=== PATIENT | female | born 1965 | race Caucasian/White ===

== ENCOUNTER → 2024-10-10 | Outpatient (CLI) | payer BC, SELFPAY ==
--- NOTE | 2024-10-10 12:10 | XR_ITS ---
EXAMINATION: Cervical spine, 5 views Technique: Cervical spine AP, AP odontoid, lateral, bilateral obliques, 5 views Exam date and time: October 10, 2024 1226 hours INDICATIONS: Neck pain decreased range of motion 10 years. FINDINGS: Moderate osteopenia Chronic wedging C5 Advanced degenerative disc disease C5-C6 Moderate degenerative disc disease C6-C7 Moderate to advanced bilateral neural foraminal stenosis at the C5-C6 C6-C7 levels Intact odontoid No acute cervical fracture IMPRESSION: Advanced degenerative disc disease C5-C6 Moderate degenerative disc disease C6-C7 Moderate to advanced bilateral neural foraminal stenosis C5-C6, C6-C7
== END | disposition home or self-care (01) ==
LOC: SERX 11-09 21:54 → CDIM 11-17 11:11
PROVIDERS: PCP Internal Medicine; Referring Provider Orthopaedic Surgery; Visit Provider Orthopaedic Surgery
DX: M50.322 Other cervical disc degeneration at C5-C6 level (principal); M48.02 Spinal stenosis, cervical region
CPT/HCPCS: 72050

== ENCOUNTER → 2025-01-14 | Outpatient (CLI) | payer BC, SELFPAY ==
--- NOTE | 2025-01-14 15:57 | XR_ITS ---
Examination:Left hip AP, lateral, AP pelvis 3 views Technique: Hip AP lateral, AP pelvis, 3 views Exam date and time:January 14, 2025 1610 hours INDICATIONS: Left hip pain 3 months FINDINGS: Mild to moderate narrowing left hip joint No left hip fracture or dislocation Total right hip arthroplasty with satisfactory alignment Bones of the pelvis intact IMPRESSION: Mild to moderate narrowing left hip joint.
== END | disposition home or self-care (01) ==
LOC: CDIM 15:38
PROVIDERS: PCP Internal Medicine; Referring Provider Orthopaedic Surgery; Visit Provider Orthopaedic Surgery
DX: M25.852 Other specified joint disorders, left hip (principal)
CPT/HCPCS: 73502